=== PATIENT | female | born 1935 | race Two or more races ===

== ENCOUNTER 2019-03-15 17:52 | Emergency (ER) | payer OTHER ==
[~2019-03-15] VITALS: Ht 152.4 cm; Wt 54.0 kg
[~2019-03-15 17:52] MED LIST: CARAFATE1 G; DEXILANT60 MG; MYCOPHENOLATE250 MG; OMEPRAZOLE10 MG; PREDNISONE10 MG PO; RANITIDINE HCL300 M1; RAYOS5 MG; RESTORIL7.5 MG; ULTRAM50 MG PO; XOPENEX0.63 MG/3 IH; ZITHROMAX500 MG PO
[2019-03-15] MEDS ORDERED: TAGAMET300 MG (18:05)
[2019-03-15] MEDS ORDERED: PROTONIX40 MG (18:05)
== END 2019-03-15 22:16 | disposition home or self-care (01) ==
LOC: ER 17:52
DX: S70.02XA Contusion of left hip, initial encounter (principal); W01.198A Fall on same level from slipping, tripping and stumbling with subsequent striking against other object, initial encounter; Y93.89 Activity, other specified; Y92.018 Other place in single-family (private) house as the place of occurrence of the external cause; Y99.8 Other external cause status

== ENCOUNTER 2019-07-07 13:16 | Emergency (ER) | payer OTHER ==
[~2019-07-07] VITALS: Ht 144.8 cm; Wt 49.9 kg
[~2019-07-07 13:16] MED LIST changes: +PROTONIX40 MG; +TAGAMET300 MG
== END 2019-07-07 18:26 | disposition home or self-care (01) ==
LOC: ER 13:16
DX: J45.998 Other asthma (principal)